=== PATIENT | female | born 1950 | race Caucasian/White ===

== ENCOUNTER 2025-01-30 18:52 | Emergency (ER) | payer MEDICARE ==
[~2025-01-30] VITALS: Ht 172.7 cm; Wt 72.6 kg
[2025-01-30] MEDS ORDERED: ONDA4ODT MM (21:06)
== END 2025-01-30 21:33 | disposition home or self-care (01) ==
LOC: ER 18:52
DX: S06.9X0A Unspecified intracranial injury without loss of consciousness, initial encounter (principal); S01.01XA Laceration without foreign body of scalp, initial encounter; I10 Essential (primary) hypertension; W18.30XA Fall on same level, unspecified, initial encounter; Y92.002 Bathroom of unspecified non-institutional (private) residence as the place of occurrence of the external cause; Z88.8 Allergy status to other drugs, medicaments and biological substances
CPT/HCPCS: 12001; 70450; 99283-25